=== PATIENT | female | born 1980 | race Hispanic/Latino ===

== ENCOUNTER → 2022-08-12 15:50 | Outpatient (CLI) | payer OTHER, MEDICAID, SELFPAY ==
--- NOTE | 2022-08-12 15:52 | DI.RAD.S_ITS ---
PROCEDURE: XR CERVICAL SPINE 4V OR 5V INDICATIONS: NECK PAIN TECHNIQUE: 5 views of the cervical spine acquired. COMPARISON: None. FINDINGS: Bones: No fractures or dislocations to the C7-T1 level. Prior surgical fusion at C5-6 level is seen with surgical hardware in place. No gross hardware loosening or failure. Oblique images demonstrate mild bilateral neural foraminal narrowing at C5-6 level. Soft tissues: No prevertebral soft tissue swelling. IMPRESSION: Prior surgical fusion at C5-6 level with postsurgical changes. No gross hardware loosening or failure. No acute fracture or dislocation. Bilateral bony foraminal stenosis is seen at C5-6 level on oblique images. Dictated by: Tushar Bee M.D. on 08/12/2022 at 17:33 Approved by: Tushar Bee M.D. on 08/12/2022 at 17:34
--- NOTE | 2022-08-12 15:52 | DI.RAD.S_ITS ---
PROCEDURE: XR LUMBAR SPINE MIN 4V INDICATIONS: LOW BACK PAIN TECHNIQUE: 5 views of the lumbar spine were acquired, including bilateral oblique views. COMPARISON: None. FINDINGS: Bones: 5 nonrib-bearing vertebrae are present. There is normal bony alignment. No vertebral body compression fractures. Mild degenerative endplate changes are seen at L4-5 and L5-S1 levels. No suspicious bony lesions. Soft tissues: Overlying bowel gas pattern is normal. No suspicious soft tissue calcifications. Oblique images: No pars defects. IMPRESSION: Mild degenerative disc disease in lower lumbar spine. No acute compression fracture or spondylolisthesis. No pars defects. Dictated by: Tushar Bee M.D. on 08/12/2022 at 17:34 Approved by: Tushar Bee M.D. on 08/12/2022 at 17:35
== END ==
PROVIDERS: PCP Physician Assistant; Referring Provider Anesthesiology; Visit Provider Anesthesiology
DX: M51.16 Intervertebral disc disorders with radiculopathy, lumbar region (principal); M48.02 Spinal stenosis, cervical region; M54.12 Radiculopathy, cervical region; M54.2 Cervicalgia; M54.50 Low back pain, unspecified; M53.3 Sacrococcygeal disorders, not elsewhere classified; M79.7 Fibromyalgia; Z98.1 Arthrodesis status
CPT/HCPCS: 72050; 72110; 99214

== ENCOUNTER 2023-02-12 14:08 | Outpatient (CLI) | payer OTHER, MEDICAID, SELFPAY ==
[2023-02-12 14:28] VITALS: BP 134/81; PULSE 90; RESP 16; TEMP 36.4; O2SAT 96
--- NOTE | 2023-02-12 14:30 | P.PCN_ITS ---
Date/Time/Diagnoses Date of procedure: 02/12/23 Time of procedure: 14:30 Procedure Notes Physician: Miguel A Romeo Total Fluoroscopy time (seconds): 11 Total sedation minutes: 0 Procedure in detail & Post-procedure care: L4-5 Interlaminar Epidural Steroid Injection Indications: William is presenting for treatment of lumbar radiculopathy with low back and leg pain. Preoperative diagnosis: Lumbar radiculopathy Postoperative diagnosis: Same Focused Examination: Ax3 Mood and affect are normal Vital Signs: VSS Consent: Following review of allergies and potential side effects/complications, including, but not necessarily limited to, infection, allergic reaction, local tissue breakdown, stroke, temporary or permanent nerve injury, paralysis, and possible , the patient indicated that they understood and agreed to proceed.? An informed consent document was signed by the patient, witnessed by a nurse and placed in the patient's chart.? Additionally, other treatment options including medications and physical therapy were reviewed with the patient. All questions were answered. Site was then marked. Anesthesia: Oral sedation prior to procedure, local Position: Prone Monitoring: NIBP, Pulse oximetry, 3 lead EKG Needle used: 18 G 3.5? Tuohy Contrast: Isovue 300M Injectate: Dexamethasone 10 mg with 1% lidocaine 2 mL Technique: The skin was prepped with chloraprep and then draped in a sterile fashion. Time out was performed as per protocol. Oxygen applied via NC. Skin and subcutaneous structures of the needle entry site was then infiltrated with 3 mL of lidocaine 1%. Under AP, lateral and contralateral oblique fluoroscopic control, the Tuohy needle was guided into the L4-5 epidural space. The space was accessed with loss of resistance technique. Isovue 300M was then injected and the spread was consistent with the epidural space. There was no evidence for intravascular or intrathecal uptake. After negative aspiration, the above- mentioned injectate was then slowly administered and the needle withdrawn. The patient expressed no unusual discomfort or paresthesias during the injection. Band-Aids applied to injection sites. EBL: less than 1 ml Complications: None Post Procedure: Patient was taken to the recovery and monitored. The patient was provided a Pain Log to continue to record the patient's response to the target- specific procedure prior to the patient's follow-up visit with the referring physician. Patient was stable upon discharge. Detailed post procedure instructions were provided. Patient was asked to call in the event of worsening pain, fever, weakness, numbness or bladder or bowel incontinence.
--- NOTE | 2023-02-12 14:38 | DI.RAD.S_ITS ---
PROCEDURE: PAIN L INTERLAMINAR/CAUDAL INJ INDICATIONS: RADICULOPATHY COMPARISON: [facility], RG, XR L-SPINE 4-6V, 02/19/2021, 9:00. FINDINGS: Fluoroscopic spot filming was performed to verify placement of a spinal needle at the L4-L5 level, as labeled on the films. Appropriate location of the needle tip was confirmed by injection of iodinated contrast. IMPRESSION: Intraprocedural examination within normal limits. Dictated by: Sanya Mac M.D. on 02/13/2023 at 12:06 Approved by: Sanya Mac M.D. on 02/13/2023 at 12:19
[2023-02-12 14:49] VITALS: BP 140/88; PULSE 99; RESP 11; O2SAT 100
[2023-02-12] MEDS: IOPAMIDOL 15 ML VIAL 3 ML INJ (14:50)
[2023-02-12] MEDS: DEXAMETHASONE 10 MG/ML VIAL INJ (14:50)
[2023-02-12 14:54] VITALS: BP 138/81; PULSE 107; RESP 10; O2SAT 100
[2023-02-12 14:55] VITALS: BP 128/79; PULSE 98; RESP 11; O2SAT 100
[2023-02-12 15:03] VITALS: BP 116/74; PULSE 98; RESP 16; O2SAT 99
== END 2023-02-12 15:05 | disposition home or self-care (01) ==
LOC: RAD 14:08
PROVIDERS: PCP Physician Assistant; Referring Provider Anesthesiology; Visit Provider Anesthesiology
DX: M54.16 Radiculopathy, lumbar region (principal)
CPT/HCPCS: 62323; J1100